=== PATIENT | female | born 1945 | race Caucasian/White ===

== ENCOUNTER → 2017-04-07 | Outpatient (CLI) | payer MEDICARE, OTHER ==
--- NOTE | 2017-04-08 10:02 | MAM ---
EXAM DESCRIPTION: 3D Screening BILATERAL CLINICAL HISTORY: 71 yearsFemaleSCREENING no complaints. Remote family history of breast cancer. Postmenopausal. Has taken HRT five or more years ago. COMPARISON: 2-D digital screening bilateral study on 03/05/2016 and 02/19/2015.. Report from prior examination also reviewed. TECHNIQUE: Bilateral CC and MLO projection full-field images, 3-D tomosynthesis digital mammographic technique. Also bilateral synthesized CC/ MLO full-field images. CAD not utilized. FINDINGS: The breast parenchymal density pattern is: Scattered areas of fibroglandular density. No skin thickening or nipple retraction . Bilateral axillary lymph nodes. Large mole on the upper outer skin surface of the right breast, has increased in size since the prior study. Bilateral intramammary lymph nodes. No focal, stellate mass or density, focal asymmetry , and no suspicious microcalcifications bilaterally. Stable mammograms compared to prior study, except for right breast skin mole, and taking into account differences in mammographic technique IMPRESSION: BI-RADS CATEGORY: 2 - BENIGN FINDINGS. FOLLOW UP: Routine digital bilateral screening, one year interval from March 2017. Written communication explaining the IMPRESSION and follow-up, will be mailed to the patient and referring health care provider. According to the [employer], yearly mammograms are recommended starting at age 40 and continuing as long as a woman is in good health. Any breast change noted on a breast self-exam should be reported promptly to the patient's healthcare provider. Breast MRI is recommended for women with an approximately 20-25% or greater lifetime risk of breast cancer, including women with a strong family history of breast or ovarian cancer and women who have been treated for Hodgkin's disease. A negative mammographic report should not delay tissue diagnosis in patients with significant clinical history or physical findings. Extremely dense breast tissue limits the sensitivity of digital mammography. Electronically signed by: Javon Del Cid MD 04/08/2017 10:01 AM CDT
== END | disposition home or self-care (01) ==
LOC: MAMMO 09:35
PROVIDERS: ATTEND Family Medicine
DX: Z12.31 Encounter for screening mammogram for malignant neoplasm of breast (principal)
CPT/HCPCS: 77063; G0202

== ENCOUNTER 2017-04-27 07:00 | Day surgery (SDC) | payer MEDICARE, OTHER ==
[~2017-04-27 07:00] MED LIST: LIDOCAINE 1% MPF 5 ML VIAL ONE
[2017-04-27] MEDS ORDERED: TROP 1%/CYCLOPEN 1%/PHENYL 2% DROPS ONE (10:21)
[2017-04-27] MEDS: PROPARACAINE 0.5% OPHTH SOL 15 ML BTTL ONE ×2 (11:22→11:58)
[2017-04-27] MEDS: GENTAMICIN 0.3% OPHTH SOL 1 DROP LEFT_EYE ONE ×3 (11:23→12:13)
[2017-04-27] MEDS ORDERED: MIDAZOLAM INJ 2 MG/2 ML VIAL ONE (11:53)
[2017-04-27] MEDS ORDERED: DEXAMETHASONE 0.1% OPHTH SOL 1 DROP LEFT_EYE ONE ×2 (12:10→12:13)
[2017-04-27] MEDS ORDERED: BRIMONIDINE 0.2% OPHTH DROPS LEFT_EYE ONE ×2 (12:11→12:13)
[2017-04-27 12:17] VITALS: O2SAT 96
[2017-04-27 12:44] VITALS: BP 140/72; TEMP 97
== END 2017-04-27 13:35 | disposition home or self-care (01) ==
LOC: AMB 07:00
PROVIDERS: ATTEND Ophthalmology
DX: H25.012 Cortical age-related cataract, left eye (principal); Z88.0 Allergy status to penicillin
CPT/HCPCS: 66984; J2250

== ENCOUNTER → 2017-05-04 | Outpatient (CLI) | payer MEDICARE, OTHER ==
--- NOTE | 2017-05-04 15:03 | US ---
EXAM DESCRIPTION: Thyroid: Ultrasound. CLINICAL HISTORY: THYROID NODULE COMPARISON: None. TECHNIQUE: Transcutaneous scannin-dimensional and Doppler modes. FINDINGS: Right lobe dimensions 5.1 x 1.7 x 1.6 cm. Heterogeneous echoes. Multiple echogenic nodules with peripheral vascularity. Three largest nodules are 12 mm, 10 mm, and 9.4 mm in the transverse axis. This latter nodule measures 12 mm AP. No microcalcifications. Contour right lobe lobulated. Juxta-thyroid masses/fluid: none. Left lobe dimensions 5.2 x 2.1 x 2.1 cm. Heterogeneous echoes. Complex nodule in the lower pole of the left lobe with central more decreased echoes. Hypoechoic rim. Transverse diameter 1.8 cm and sagittal dimensions 2.1 x 1.6 cm. Peripheral vascularity and vascular central region. Isoechoic solid nodule abutting this larger nodule with transverse diameter 1.3 cm. Sagittal dimensions 1.4 x 1.0 cm. Nonvascular. Vascularity No microcalcifications. Contour left lobe smooth. Juxta-thyroid masses/fluid: none. Isthmus thickness 2.3 mm. Heterogeneous echoes. Hypoechoic solid nodule to the left of midline measuring 11 mm transverse. 12 x 6 mm in the sagittal plane. Peripheral vascularity. Contour smooth. IMPRESSION: 1. Multiple nodules in the bilateral thyroid gland and in the isthmus. Largest nodule is complex in the inferior left pole with transverse diameter 1.8 cm and vascularity. This nodule meets the criteria for fine needle aspiration sampling according to RP best practice guidelines, adopted from ACR white paper and [place] 3-tiered guidelines on incidental thyroid nodules. Please see below.* Other bilateral nodules do not meet these imaging criteria. 2. No discrete solid masses, cystic masses, or edema in the surrounding soft tissues. *Further evaluation by thyroid US recommended for: -Solitary incidental thyroid nodule (ITN) with high risk imaging features (locally invasive nodule or suspicious lymph nodes) -Solitary ITN of any size in pediatric patients <= 18 years of age -Solitary ITN >= 1 cm in axial plane in patients between 18 and 35 years of age -Solitary ITN >= 1.5 cm in axial plane in patients >= 35 years of age -Heterogeneous enlarged thyroid gland -ITN avid on FDG-PET or other nuclear medicine (MIBI and octreotide) scans. FNA biopsy is also recommended for PET avid nodules. 2.No f/u imaging is recommended for ITN's not meeting the above criteria. 3.For multiple thyroid nodules, the above recommendations for solitary ITN are to be applied to the largest nodule. 4.No US or f/u recommended for ITN's without high risk features in patients with limited life expectancy or significant co-morbidities, unless clinically warranted. 5.These recommendations do not apply to patients w/ increased risk for thyroid cancer or patients with symptomatic thyroid disease. Recommendations for f/u of Incidental Thyroid Nodules (ITN) found on CT, MR, NM and Extrathyroidal US are based upon the ACR white paper and Gordillo 3-tiered system for managing ITN's: [facility] 2015 Aug;12(2): 143-50 Electronically signed by: Javon Del Cid MD 05/04/2017 3:02 PM CDT
== END | disposition home or self-care (01) ==
LOC: US 10:12
PROVIDERS: ATTEND Family Medicine
DX: E04.1 Nontoxic single thyroid nodule (principal)

== ENCOUNTER → 2018-04-08 | Outpatient (CLI) | payer MEDICARE, OTHER ==
--- NOTE | 2018-04-08 20:50 | MAM ---
EXAM DESCRIPTION: 3D Screening BILATERAL : Digital Mammography. CLINICAL HISTORY: 72 years Female SCREENING . No complaints. No personal history of breast cancer. Remote family history of breast cancer. No childbirth. Postmenopausal. Has taken HRT 5 or more years ago.. COMPARISON: Bilateral screening digital breast tomosynthesis 04/07/2017. TECHNIQUE: Bilateral CC and MLO projection full-field images, Digital tomosynthesis mammographic technique. Bilateral digital 2-D full-field MLO images. CAD not utilized. FINDINGS: The breast parenchymal density pattern is: Scattered areas of fibroglandular density. No skin thickening or nipple retraction. Large skin moles on the lateral surface of the middle right breast. Bilateral axillary lymph nodes. Solitary calcifications right breast. No new focal, stellate mass or density, focal asymmetry , and no suspicious microcalcifications bilaterally. Stable mammograms compared to prior study. IMPRESSION: Benign exam. BIRAD CATEGORY: 2 BENIGN FINDINGS. RECOMMENDATIONS: FOLLOW UP: Routine digital bilateral screening, one year interval from March 2018. Written communication explaining the IMPRESSION and follow-up, will be mailed to the patient and referring health care provider. According to the [employer], yearly mammograms are recommended starting at age 40 and continuing as long as a woman is in good health. Any breast change noted on a breast self-exam should be reported promptly to the patient's healthcare provider. Breast MRI is recommended for women with an approximately 20-25% or greater lifetime risk of breast cancer, including women with a strong family history of breast or ovarian cancer and women who have been treated for Hodgkin's disease. A negative mammographic report should not delay tissue diagnosis in patients with significant clinical history or physical findings. Extremely dense breast tissue limits the sensitivity of digital mammography. Electronically signed by: Javon Del Cid MD 04/08/2018 8:48 PM CDT
== END ==
LOC: MAMMO 08:00
PROVIDERS: ATTEND Family Medicine
DX: Z12.31 Encounter for screening mammogram for malignant neoplasm of breast (principal)

== ENCOUNTER 2018-04-29 05:45 | Day surgery (SDC) | payer MEDICARE, OTHER ==
--- NOTE | 2018-04-27 14:32 | RAD ---
EXAM DESCRIPTION: Chest,2 Views CLINICAL HISTORY: PREOP COMPARISON: None FINDINGS: Two-view chest x-ray shows cardiomediastinal silhouette and pulmonary vasculature to be within normal limits. Mild calcifications of the thoracic aortic arch. The lungs are normally aerated and clear. Costophrenic angles are sharp. Osseous structures are unremarkable IMPRESSION: No radiographic evidence of acute cardiopulmonary disease. Electronically signed by: Rene Riley MD 04/27/2018 2:31 PM CDT
[2018-04-29] MEDS ORDERED: LACTATED RINGERS 1,000 ML ONE (06:50)
[2018-04-29] MEDS ORDERED: SODIUM CHL 0.9% 50ML MIN-BAG+ 50 ML IVPB ONE (06:50)
[2018-04-29] MEDS ORDERED: ceFAZolin SODIUM 1 GM VIAL ONE (06:51)
[2018-04-29] MEDS ORDERED: LIDOCAINE 1% 10 ML VIAL INJ ONE (07:00)
[2018-04-29] MEDS ORDERED: PROPOFOL 200 MG/20 ML VIAL IV ONE (07:00)
[2018-04-29] MEDS ORDERED: SODIUM BICARBONATE VIAL 50 MEQ/50 ML VIAL ONE (09:47)
[2018-04-29] MEDS ORDERED: LIDOCAINE 1% 50 ML VIAL INJ ONE (09:47)
[2018-04-29] MEDS ORDERED: fentaNYL CITRATE INJ 50 MCG/ML AMP ONE (09:50)
[2018-04-29] MEDS ORDERED: MIDAZOLAM INJ 2 MG/2 ML VIAL ONE (09:50)
--- NOTE | 2018-04-29 11:15 | OP ---
DATE OF PROCEDURE: 04/29/18 PREOPERATIVE DIAGNOSIS: 1. Growing right breast skin lesion at 9 o'clock. POSTOPERATIVE DIAGNOSIS: 1. Growing right breast skin lesion at 9 o'clock. PROCEDURE: 1. Excision, right breast skin lesion. SURGEON: Joni Cid MD. POWERHOUSE HELPER: None. ANESTHESIA: Local infiltration of 1% lidocaine with bicarb and IV sedation by Anesthesia. INDICATION: The patient has a longstanding lesion that has been biopsied and is a seborrheic keratosis. It is growing. It is greater than 5 cm in the transverse direction at this point. It continues to catch on her clothes and bothers the patient. She was brought to the Surgical Suite today for excision under local anesthesia with IV sedation after the risks, benefits and alternatives to the procedure were discussed and accepted. FINDINGS: The lesion was just over 5 cm in greatest diameter transversely. The closed incision was 10.5 cm. PROCEDURE: The patient was brought to the Surgical Suite and placed in supine position and prepped and draped in the usual sterile manner. Surgical time-out was taken and the patient was sedated. At this point, a curvilinear incision was fashioned around the lesion, first with a marking pen and then with infiltration of anesthesia. The skin was then incised with a 15 blade and dissection was carried down through the skin to the subcutaneous tissue using electrocautery. The lesion was then excised using electrocautery. Hemostasis was obtained with electrocautery. At this point, the subcutaneous tissues were reapproximated with interrupted 3-0 Vicryl and the skin edges were then approximated with interrupted 4-0 Nylon vertical mattress sutures. A sterile pressure dressing was applied. The patient was awakened and taken to the Recovery Room in good and stable condition. Estimated blood loss was approximately 25 to 50 mL. All sponge, needle and instrument counts were correct. #[id number] [facility]
[2018-04-29 12:23] VITALS: BP 122/75; TEMP 97.1; O2SAT 95
== END 2018-04-29 11:35 | disposition home or self-care (01) ==
LOC: AMB 05:45
PROVIDERS: ATTEND Surgery
DX: L82.1 Other seborrheic keratosis (principal); R00.1 Bradycardia, unspecified; K21.9 Gastro-esophageal reflux disease without esophagitis; M19.90 Unspecified osteoarthritis, unspecified site; Z87.891 Personal history of nicotine dependence; Z88.0 Allergy status to penicillin; Z88.2 Allergy status to sulfonamides; Z88.8 Allergy status to other drugs, medicaments and biological substances; Z79.899 Other long term (current) drug therapy
CPT/HCPCS: 00300; 11406; 71046; 80048; 81001; 85025; 88305; 93005; J0690; J2250; J3010; J3490; J7050; J7120

== ENCOUNTER 2018-06-03 05:46 | Day surgery (SDC) | payer MEDICARE, OTHER ==
[2018-06-03] MEDS ORDERED: LACTATED RINGERS 1,000 ML ONE (06:03)
[2018-06-03] MEDS ORDERED: LIDOCAINE 1% 10 ML VIAL INJ ONE (07:00)
[2018-06-03] MEDS ORDERED: PROPOFOL 200 MG/20 ML VIAL IV ONE (07:00)
[2018-06-03 09:10] VITALS: BP 160/76; TEMP 97.2; O2SAT 99
--- NOTE | 2018-06-03 09:48 | OP ---
DATE OF PROCEDURE: 06/03/18 PREPROCEDURE DIAGNOSIS: 1. Uncontrolled reflux symptoms. POSTPROCEDURE DIAGNOSIS: 1. Large paraesophageal hiatal hernia. 2. [place]-colored mucosa, 34-31 cm from incisors. 3. LA Grade A esophagitis. 4. Erythematous gastropathy. PROCEDURE: 1. Esophagogastroduodenoscopy. SURGEON: Travis Garcia MD COMPLICATIONS: No immediate complications. SEDATION: The patient was sedated via IV propofol by the Anesthesia Department. CONSENT: Prior to the procedure, risks, benefits and alternatives to the therapy were discussed with the patient. The risks included bleeding, infection , perforation and . The patient agreed to the procedure and signed a consent. PREPROCEDURE ANESTHESIA ASSESSMENT: An examination revealed no contraindication to sedation. Airway examination demonstrated a Mallampati class type 2, ASA grade assessment type 2. Throughout the procedure, the patient's blood pressure and additional vital signs were closely monitored. PROCEDURE: The patient was placed in the left lateral decubitus position. Bite block was placed in the mouth between the teeth. The Olympus endoscope was introduced through the oropharynx, esophagus, stomach and the second portion of the duodenum. The scope was retracted and the mucosa visualized. The entirety of the exam was performed under direct visualization. Retroflexion was performed in the stomach. The patient tolerated the procedure well. FINDINGS: 1. A tortuous esophagus was visualized throughout the examination. 2. A large paraesophageal hiatal hernia was seen in the distal esophagitis. The diaphragmatic pinch was seen at 39 cm from the incisors and the gastric folds were seen at 31 cm from the incisors. 3. [place]-colored mucosa was seen between 31 cm and 34 cm from the incisors. One bottle of biopsies with cold forceps was obtained in four different quadrants to rule out Pabon's esophagitis. 4. Z-line was regular and seen at 31 cm from the incisors. 5. Mild esophagitis was seen at the gastroesophageal junction, LA Grade A esophagitis. 6. Moderate striped erythema was seen in the antrum, biopsied with cold forceps. 7. Normal duodenum. RECOMMENDATION: 1. Return the patient home. 2. Resume previous diet. 3. Reinforced GERD lifestyle recommendations, specifically avoiding large volume/ portion meals specifically in the lateral parts of the day, avoiding laying supine after eating, avoiding caffeine products as much as possible. 4. Continue Dexilant at present dose and may add H2 blockers at nighttime. 5. I will discuss with the patient the possibility of surgical referral for candidacy for hiatal hernia repair. 6. The findings were discussed with the patient, family members and primary care provider. 7. All questions were answered. 8. Return to referring physician as previously scheduled. 8. Return to my office in the subsequent 2 to 3 weeks. #[id number] MTDD
== END 2018-06-03 09:05 | disposition home or self-care (01) ==
LOC: AMB 05:46
PROVIDERS: ATTEND Internal Medicine Gastroenterology
DX: K21.0 Gastro-esophageal reflux disease with esophagitis (principal); K29.00 Acute gastritis without bleeding; K29.50 Unspecified chronic gastritis without bleeding; K44.9 Diaphragmatic hernia without obstruction or gangrene; M19.90 Unspecified osteoarthritis, unspecified site; E78.5 Hyperlipidemia, unspecified; I34.0 Nonrheumatic mitral (valve) insufficiency; M85.80 Other specified disorders of bone density and structure, unspecified site; Z88.0 Allergy status to penicillin; Z88.2 Allergy status to sulfonamides; Z88.8 Allergy status to other drugs, medicaments and biological substances; Z87.891 Personal history of nicotine dependence; Z79.899 Other long term (current) drug therapy
CPT/HCPCS: 00731; 43239; 88305; 88342; J3490; J7120

== ENCOUNTER → 2020-06-29 | Outpatient (CLI) | payer MEDICARE, OTHER | LOC: GMA CAST 10:31 | PROVIDERS: ATTEND Family Medicine Sports Medicine | DX: Z79.899 Other long term (current) drug therapy (principal) ==